=== PATIENT | female | born 1980 | race Caucasian/White ===

== ENCOUNTER 2020-04-24 06:50 | Emergency (ER) | payer MEDICAID ==
[~2020-04-24] VITALS: Ht 167.6 cm; Wt 95.3 kg
[2020-04-24 06:52] VITALS: BP 125/80; Ht 167.6 cm; Wt 95.3 kg
[2020-04-24] MEDS ORDERED: PROAIR RES117 MCG/Ac INH (08:13)
== END 2020-04-24 09:04 | disposition home or self-care (01) ==
LOC: ED 06:50
DX: U07.1 COVID-19 (principal); Z86.2 Personal history of diseases of the blood and blood-forming organs and certain disorders involving the immune mechanism